=== PATIENT | female | born 1990 | race African-American/Black ===

== ENCOUNTER 2017-07-22 15:12 | Emergency (ER) | payer MEDICAID, OTHER ==
[~2017-07-22] VITALS: Ht 160 cm; Wt 58.0 kg
[~2017-07-22 15:12] MED LIST: NO MEDS; PREN1TAB19; [UNRECOGNIZED DRUG - REMARK]
[2017-07-22] MEDS ORDERED: NALOXONE HCL 1 MG/ML 2ML VIAL ONE (15:21)
[2017-07-22] MEDS ORDERED: NALOXONE HCL 1 MG/ML 2ML VIAL IV ONE (16:00)
[2017-07-22 16:18] LABS: BASOPHILS % 0.5 % (0.0-2.0); EOSINOPHILS % 0.9 % (0.0-5.0); HEMATOCRIT. 35.5 % (36.0-48.0); LYMPHOCYTES % 27.8 % (20.0-50.0); MEAN CORPUSCULAR HEMOGLOBIN 32.7 pg (28.0-32.0); MEAN CORPUSCULAR VOLUME 97.2 fL (81.0-99.0); MEAN PLATELET VOLUME 7.4 fl (7.4-10.4); MONOCYTES % 10.1 % (2.0-8.0); NEUTROPHILS % 60.7 % (40.0-76.0); PLATELET 245 x1000/uL (130-400); RED BLOOD CELL COUNT 3.65 mill/uL (4.2-5.4); RED CELL DISTRIBUTION WIDTH 12.8 % (11.6-14.6)
[2017-07-22 16:27] LABS: HCG SCREEN NEGATIVE
[2017-07-22 16:32] LABS: AMMONIA 40 uMol/L (<32); CARBON DIOXIDE 24 mEq/L (21-32); CHLORIDE 111 mEq/L (98-107)
[2017-07-22 16:47] LABS: ETHANOL BLOOD 338 mg/dL
[2017-07-22 17:05] LABS: CLARITY URINE CLEAR (CLEAR); COLOR URINE YELLOW (YELLOW); KETONES URINE NEGATIVE (NEGATIVE); LEUKOCYTE ESTERASE URINE NEGATIVE (NEGATIVE); NITRITE URINE NEGATIVE (NEGATIVE); OCCULT BLOOD URINE NEGATIVE (NEGATIVE); PROTEIN URINE 1+ (NEGATIVE); SPECIFIC GRAVITY URINE 1.015 (1.005-1.030); UROBILINOGEN URINE 0.2 E.U./dL (0.2-1.0)
[2017-07-22 17:14] LABS: *AMPHETAMINES SCREEN URINE NEGATIVE (NEGATIVE); *BARBITURATES SCREEN URINE NEGATIVE (NEGATIVE); *BENZODIAZEPINES SCREEN URINE NEGATIVE (NEGATIVE); *COCAINE SCREEN URINE NEGATIVE (NEGATIVE); METHADONE URINE SCREEN NEGATIVE (NEGATIVE); OPIATES URINE SCREEN NEGATIVE (NEGATIVE); PHENCYCLIDINE URINE SCREEN NEGATIVE (NEGATIVE)
[2017-07-22 17:16] LABS: CANNABINOID URINE SCREEN PRESUMTIVE POSITIVE (NEGATIVE)
[2017-07-22] MEDS ORDERED: SODIUM CHLORIDE 0.9% 1,000 ML IV ONE (22:00)
[2017-07-23 01:33] VITALS: BP 115/56
== END 2017-07-23 05:04 | disposition home or self-care (01) ==
LOC: ER 15:31
DX: F10.129 Alcohol abuse with intoxication, unspecified (principal); G31.2 Degeneration of nervous system due to alcohol; F12.10 Cannabis abuse, uncomplicated; R41.82 Altered mental status, unspecified; F32.9 Major depressive disorder, single episode, unspecified; R41.0 Disorientation, unspecified; D64.9 Anemia, unspecified
CPT/HCPCS: 36415; 70450; 71045; 80053; 80305; 80307; 80329; 81001; 82140; 84443; 84703; 85025; 93005; 96361; 96374; 99285; G0482; J2310; J7030

== ENCOUNTER 2017-12-14 18:25 | Emergency (ER) | payer SELFPAY ==
[~2017-12-14] VITALS: Ht 172.7 cm; Wt 65.0 kg
[2017-12-14 20:25] LABS: BASOPHILS % 0.8 % (0.0-2.0); EOSINOPHILS % 0.4 % (0.0-5.0); HEMATOCRIT. 36.2 % (36.0-48.0); HEMOGLOBIN. 12.1 g/dL (12.0-16.0); LYMPHOCYTES % 34.1 % (20.0-50.0); MEAN CORPUSCULAR VOLUME 98.2 fL (81.0-99.0); MEAN PLATELET VOLUME 7.3 fl (7.4-10.4); MONOCYTES % 9.5 % (2.0-8.0); NEUTROPHILS % 55.2 % (40.0-76.0); PLATELET 191 x1000/uL (130-400); RED BLOOD CELL COUNT 3.68 mill/uL (4.2-5.4); RED CELL DISTRIBUTION WIDTH 13.2 % (11.6-14.6)
[2017-12-14 20:27] LABS: CHLORIDE 110 mEq/L (98-107)
[2017-12-14 20:37] LABS: HCG SCREEN NEGATIVE
[2017-12-14 20:41] LABS: ETHANOL BLOOD 511 mg/dL
[2017-12-14 23:00] VITALS: BP 110/59
== END 2017-12-14 23:24 | disposition home or self-care (01) ==
LOC: ER 22:56
DX: M79.673 Pain in unspecified foot (principal); F10.129 Alcohol abuse with intoxication, unspecified; Y90.8 Blood alcohol level of 240 mg/100 ml or more
CPT/HCPCS: 36415; 73630; 80053; 84703; 85025; 99285; G0482

== ENCOUNTER 2018-03-03 11:39 | Emergency (ER) | payer MEDICAID, OTHER ==
[~2018-03-03] VITALS: Ht 162.6 cm; Wt 54.6 kg
[2018-03-03 12:29] VITALS: BP 159/100
[2018-03-03 15:38] LABS: CLARITY URINE CLEAR (CLEAR); COLOR URINE YELLOW (YELLOW); KETONES URINE TRACE (NEGATIVE); LEUKOCYTE ESTERASE URINE NEGATIVE (NEGATIVE); NITRITE URINE NEGATIVE (NEGATIVE); OCCULT BLOOD URINE NEGATIVE (NEGATIVE); PH URINE 6.5 (4.5-8.0); PROTEIN URINE 2+ (NEGATIVE); SPECIFIC GRAVITY URINE 1.009 (1.005-1.030); UROBILINOGEN URINE 0.2 E.U./dL (0.2-1.0)
== END 2018-03-03 16:20 | disposition home or self-care (01) ==
LOC: ER 12:45
DX: M54.40 Lumbago with sciatica, unspecified side (principal); R20.2 Paresthesia of skin; F19.20 Other psychoactive substance dependence, uncomplicated; F17.200 Nicotine dependence, unspecified, uncomplicated; D64.9 Anemia, unspecified; I10 Essential (primary) hypertension
CPT/HCPCS: 72100; 81003; 81025; 99285

== ENCOUNTER 2018-03-06 18:55 | Emergency (ER) | payer OTHER ==
[~2018-03-06] VITALS: Ht 162.6 cm; Wt 55.0 kg
[2018-03-07 00:45] VITALS: BP 120/73
== END 2018-03-07 00:55 | disposition home or self-care (01) ==
LOC: ER 19:47
DX: F41.9 Anxiety disorder, unspecified (principal); I10 Essential (primary) hypertension; D64.9 Anemia, unspecified
CPT/HCPCS: 99283

== ENCOUNTER 2018-04-14 03:16 | Emergency (ER) | payer OTHER ==
[~2018-04-14] VITALS: Ht 157.5 cm; Wt 59.0 kg
[2018-04-14] MEDS ORDERED: TETRACAINE 0.5% OPHTH DROPS 4ML RIGHTEYE ONE (04:15)
[2018-04-14 06:30] VITALS: BP 129/78
== END 2018-04-14 06:46 | disposition home or self-care (01) ==
LOC: ER 03:16
DX: S05.01XA Injury of conjunctiva and corneal abrasion without foreign body, right eye, initial encounter (principal); E78.00 Pure hypercholesterolemia, unspecified; F17.200 Nicotine dependence, unspecified, uncomplicated; W50.1XXA Accidental kick by another person, initial encounter; Y93.89 Activity, other specified; Y92.89 Other specified places as the place of occurrence of the external cause; Y99.8 Other external cause status
CPT/HCPCS: 99283

== ENCOUNTER 2018-04-15 14:37 | Emergency (ER) | payer OTHER ==
[~2018-04-15] VITALS: Ht 162.6 cm; Wt 56.0 kg
[2018-04-15 14:40] VITALS: BP 104/69
== END 2018-04-15 15:40 | disposition left against medical advice (07) ==
LOC: ER 14:37
DX: Z53.21 Procedure and treatment not carried out due to patient leaving prior to being seen by health care provider (principal)

== ENCOUNTER 2019-01-12 12:36 | Emergency (ER) | payer OTHER ==
[~2019-01-12] VITALS: Ht 157.5 cm; Wt 54.0 kg
[2019-01-12 13:03] VITALS: BP 137/80
== END 2019-01-12 13:50 | disposition left against medical advice (07) ==
LOC: ER 12:36
DX: K08.89 Other specified disorders of teeth and supporting structures (principal); R22.9 Localized swelling, mass and lump, unspecified; Z53.21 Procedure and treatment not carried out due to patient leaving prior to being seen by health care provider

== ENCOUNTER 2020-05-17 06:58 | Emergency (ER) | payer OTHER ==
[~2020-05-17] VITALS: Ht 157.5 cm; Wt 63.0 kg
[2020-05-17] MEDS ORDERED: ACETAMINOPHEN WITH CODEINE 300/30MG TABLET PO STA (07:42)
[2020-05-17 08:30] LABS: BASOPHILS % 0.5 % (0.0-2.0); HEMATOCRIT. 34.1 % (36.0-48.0); HEMOGLOBIN. 11.5 g/dL (12.0-16.0); LYMPHOCYTES % 17.8 % (20.0-50.0); MEAN CORPUSCULAR HEMOGLOBIN 36.1 pg (28.0-32.0); MEAN CORPUSCULAR VOLUME 107.5 fL (81.0-99.0); MEAN PLATELET VOLUME 8.4 fl (7.4-10.4); MONOCYTES % 9.8 % (2.0-8.0); NEUTROPHILS % 70.9 % (40.0-76.0); PLATELET 225 x1000/uL (130-400); RED BLOOD CELL COUNT 3.18 mill/uL (4.2-5.4)
[2020-05-17 08:32] LABS: CHLORIDE 107 mEq/L (98-107)
[2020-05-17 08:39] LABS: CLARITY URINE CLOUDY (CLEAR); COLOR URINE YELLOW (YELLOW); KETONES URINE NEGATIVE (NEGATIVE); LEUKOCYTE ESTERASE URINE 2+ (NEGATIVE); NITRITE URINE NEGATIVE (NEGATIVE); OCCULT BLOOD URINE NEGATIVE (NEGATIVE); PH URINE 6.5 (4.5-8.0); PROTEIN URINE TRACE (NEGATIVE); SPECIFIC GRAVITY URINE 1.015 (1.005-1.030)
[2020-05-17 08:50] LABS: HCG SCREEN NEGATIVE
[2020-05-17 09:57] VITALS: BP 139/76
== END 2020-05-17 09:58 | disposition home or self-care (01) ==
LOC: ER 06:58
DX: N30.00 Acute cystitis without hematuria (principal); R10.9 Unspecified abdominal pain; F17.200 Nicotine dependence, unspecified, uncomplicated; E78.00 Pure hypercholesterolemia, unspecified; R16.0 Hepatomegaly, not elsewhere classified
CPT/HCPCS: 36415; 74018; 80053; 81003; 84703; 85025; 93005; 99285

== ENCOUNTER 2020-05-17 18:11 | Emergency (ER) | payer OTHER ==
[~2020-05-17] VITALS: Ht 157.5 cm; Wt 64.0 kg
[2020-05-17 19:45] VITALS: BP 134/87
== END 2020-05-17 20:01 | disposition home or self-care (01) ==
LOC: ER 18:11
DX: R10.9 Unspecified abdominal pain (principal); K76.0 Fatty (change of) liver, not elsewhere classified; N39.0 Urinary tract infection, site not specified; Z98.890 Other specified postprocedural states
CPT/HCPCS: 74176; 81025; 99284

== ENCOUNTER 2020-10-18 08:04 | Emergency (ER) | payer OTHER ==
[~2020-10-18] VITALS: Ht 157.5 cm; Wt 64.0 kg
[2020-10-18] MEDS ORDERED: FAMOTIDINE 20MG/2ML VIAL IV STA (08:48)
[2020-10-18] MEDS ORDERED: KETOROLAC 30MG/ML VIAL IV STA (08:48)
[2020-10-18] MEDS ORDERED: SODIUM CHLORIDE 0.9% 1,000 ML IV ONE (09:00)
[2020-10-18 09:09] LABS: CLARITY URINE CLEAR (CLEAR); COLOR URINE YELLOW (YELLOW); KETONES URINE TRACE (NEGATIVE); LEUKOCYTE ESTERASE URINE NEGATIVE (NEGATIVE); NITRITE URINE NEGATIVE (NEGATIVE); OCCULT BLOOD URINE NEGATIVE (NEGATIVE); PH URINE 5.5 (4.5-8.0); PROTEIN URINE NEGATIVE (NEGATIVE); SPECIFIC GRAVITY URINE 1.021 (1.005-1.030); UROBILINOGEN URINE 0.2 E.U./dL (0.2-1.0)
[2020-10-18 09:12] LABS: CHLORIDE 110 mEq/L (98-107)
[2020-10-18 09:20] LABS: BASOPHILS % 0.4 % (0.0-2.0); EOSINOPHILS % 1.7 % (0.0-5.0); HEMATOCRIT. 32.5 % (36.0-48.0); HEMOGLOBIN. 10.9 g/dL (12.0-16.0); LYMPHOCYTES % 22.4 % (20.0-50.0); MEAN CORPUSCULAR HEMOGLOBIN 34.8 pg (28.0-32.0); MEAN CORPUSCULAR VOLUME 103.3 fL (81.0-99.0); MEAN PLATELET VOLUME 7.4 fl (7.4-10.4); MONOCYTES % 11.4 % (2.0-8.0); NEUTROPHILS % 64.1 % (40.0-76.0); PLATELET 221 x1000/uL (130-400); RED BLOOD CELL COUNT 3.14 mill/uL (4.2-5.4); RED CELL DISTRIBUTION WIDTH 12.5 % (11.6-14.6)
[2020-10-18] MEDS ORDERED: ACETAMINOPHEN 325MG TABLET PO STA (10:45)
[2020-10-18] MEDS ORDERED: CEFTRIAXONE SODIUM 500 MG/VIAL IV ONE (10:45)
[2020-10-18] MEDS ORDERED: AZITHROMYCIN 500 MG TABLET PO ONE (10:45)
[2020-10-18] MEDS ORDERED: NAPR-681 PO (11:32)
[2020-10-18 11:45] VITALS: BP 126/78
[2020-10-21 04:09] LABS: NEISSERIA GONORRHOEAE NAA Negative (Negative)
== END 2020-10-18 11:48 | disposition home or self-care (01) ==
LOC: ER 08:36
DX: N72 Inflammatory disease of cervix uteri (principal); R10.30 Lower abdominal pain, unspecified; Z98.890 Other specified postprocedural states
CPT/HCPCS: 36415; 80053; 81003; 81025; 83690; 85025; 87210; 87491; 87591; 96361; 96374; 96375; 99284; J0696; J1885; J3490; J7030

== ENCOUNTER 2021-07-21 19:25 | Emergency (ER) | payer OTHER ==
[~2021-07-21] VITALS: Ht 157.5 cm; Wt 56.0 kg
[~2021-07-21 19:25] MED LIST changes: +NAPR-681 PO; -NO MEDS; -PREN1TAB19; -[UNRECOGNIZED DRUG - REMARK]
[2021-07-21] MEDS: BACITRACIN ZINC OINT UDPKT TOP ONE (22:28)
[2021-07-21] MEDS: LIDOCAINE HCL/EPINEPHRINE 1%-EPI 1:100,000 10 ML VIAL INFIL ONE (22:28)
[2021-07-21] MEDS: TETANUS, DIPHTHERIA, PERTUSSIS VAC/PF 0.5ML (>10YR OLD) IM ONE (22:28)
[2021-07-21] MEDS: LIDOCAINE HCL/EPINEPHRINE 1%-EPI 1:100,000 20 ML VIAL INFIL ONE (22:30)
[2021-07-21 23:06] VITALS: BP 135/67
== END 2021-07-21 23:11 | disposition home or self-care (01) ==
LOC: ER 19:25
DX: S01.111A Laceration without foreign body of right eyelid and periocular area, initial encounter (principal); I49.9 Cardiac arrhythmia, unspecified; Y04.0XXA Assault by unarmed brawl or fight, initial encounter; Y93.89 Activity, other specified; Y92.89 Other specified places as the place of occurrence of the external cause; Y99.8 Other external cause status
CPT/HCPCS: 12013; 90471; 90715; 93005; 99283; J3490

== ENCOUNTER 2021-08-01 00:51 | Emergency (ER) | payer OTHER ==
[~2021-08-01] VITALS: Ht 162.6 cm; Wt 68.0 kg
[2021-08-01] MEDS ORDERED: SODIUM CHLORIDE 0.9% 1,000 ML IV ONE (01:15)
[2021-08-01 03:44] LABS: BASOPHILS % 0.4 % (0.0-2.0); EOSINOPHILS % 0.7 % (0.0-5.0); LYMPHOCYTES % 40.5 % (20.0-50.0); MEAN CORPUSCULAR HEMOGLOBIN 34.7 pg (28.0-32.0); MEAN CORPUSCULAR VOLUME 100.9 fL (81.0-99.0); MEAN PLATELET VOLUME 7.2 fl (7.4-10.4); MONOCYTES % 5.9 % (2.0-8.0); NEUTROPHILS % 52.5 % (40.0-76.0); PLATELET 250 x1000/uL (130-400); RED BLOOD CELL COUNT 3.17 mill/uL (4.2-5.4); RED CELL DISTRIBUTION WIDTH 14.1 % (11.6-14.6)
[2021-08-01 03:48] LABS: HCG SCREEN NEGATIVE
[2021-08-01 04:15] LABS: CHLORIDE 113 mEq/L (98-107)
[2021-08-01 04:56] LABS: ETHANOL BLOOD 306 mg/dL
[2021-08-01 06:43] VITALS: BP 111/64
== END 2021-08-01 06:52 | disposition home or self-care (01) ==
LOC: ER 01:09
DX: F10.129 Alcohol abuse with intoxication, unspecified (principal); Y90.8 Blood alcohol level of 240 mg/100 ml or more; D64.9 Anemia, unspecified
CPT/HCPCS: 36415; 70450; 70480; 80053; 80320; 84703; 85025; 96360; 96361; 99284; J7030; G0480

== ENCOUNTER 2021-08-08 06:56 | Emergency (ER) | payer OTHER ==
[~2021-08-08] VITALS: Ht 157.5 cm; Wt 54.4 kg
[2021-08-08] MEDS ORDERED: IBUPROFEN 600MG TABLET PO ONE (08:00)
[2021-08-08] MEDS ORDERED: TETANUS, DIPHTHERIA, PERTUSSIS VAC/PF 0.5ML (>10YR OLD) IM ONE (08:00)
[2021-08-08] MEDS ORDERED: LIDOCAINE HCL/EPINEPHRINE 1%-EPI 1:100,000 20 ML VIAL INFIL ONE (08:00)
[2021-08-08] MEDS ORDERED: LIDOCAINE HCL/EPINEPHRINE 1%-EPI 1:100,000 10 ML VIAL INFIL SCH (08:30)
[2021-08-08 08:33] VITALS: BP 115/85
[2021-08-08] MEDS ORDERED: IBUP-2029 MT (10:45)
[2021-08-08] MEDS ORDERED: CEPH500C2 MT (10:45)
== END 2021-08-08 11:14 | disposition home or self-care (01) ==
LOC: ER 06:56
DX: S01.511A Laceration without foreign body of lip, initial encounter (principal); D64.9 Anemia, unspecified; Y04.0XXA Assault by unarmed brawl or fight, initial encounter; Y93.89 Activity, other specified; Y92.9 Unspecified place or not applicable; Z98.890 Other specified postprocedural states
CPT/HCPCS: 12011; 81025; 90715; 99282; J3490

== ENCOUNTER 2021-08-17 11:48 | Emergency (ER) | payer OTHER ==
[~2021-08-17] VITALS: Ht 157.5 cm; Wt 57.0 kg
[~2021-08-17 11:48] MED LIST changes: +CEPH500C2 MT; +IBUP-2029 MT
[2021-08-17 11:54] VITALS: BP 120/79
== END 2021-08-17 15:22 | disposition left against medical advice (07) ==
LOC: ER 11:48
DX: Z48.02 Encounter for removal of sutures (principal)
CPT/HCPCS: 99281

== ENCOUNTER 2021-11-28 13:15 | Emergency (ER) | payer OTHER ==
[~2021-11-28] VITALS: Ht 160 cm; Wt 59.0 kg
[2021-11-28] MEDS ORDERED: IBUPROFEN 600MG TABLET PO STA (14:00)
[2021-11-28 14:30] VITALS: BP 140/97
[2021-11-28 14:33] LABS: BASOPHILS % 0.5 % (0.0-2.0); EOSINOPHILS % 0.4 % (0.0-5.0); HEMATOCRIT. 37.3 % (36.0-48.0); HEMOGLOBIN. 12.6 g/dL (12.0-16.0); LYMPHOCYTES % 22.1 % (20.0-50.0); MEAN CORPUSCULAR HEMOGLOBIN 35.1 pg (28.0-32.0); MEAN CORPUSCULAR VOLUME 103.9 fL (81.0-99.0); MEAN PLATELET VOLUME 7.7 fl (7.4-10.4); MONOCYTES % 5.9 % (2.0-8.0); NEUTROPHILS % 71.1 % (40.0-76.0); PLATELET 127 x1000/uL (130-400); RED BLOOD CELL COUNT 3.59 mill/uL (4.2-5.4); RED CELL DISTRIBUTION WIDTH 13.8 % (11.6-14.6)
[2021-11-28 14:37] LABS: CLARITY URINE CLEAR (CLEAR); COLOR URINE YELLOW (YELLOW); KETONES URINE NEGATIVE (NEGATIVE); LEUKOCYTE ESTERASE URINE TRACE (NEGATIVE); NITRITE URINE NEGATIVE (NEGATIVE); OCCULT BLOOD URINE NEGATIVE (NEGATIVE); PH URINE 6.5 (4.5-8.0); PROTEIN URINE NEGATIVE (NEGATIVE); SPECIFIC GRAVITY URINE 1.003 (1.005-1.030); UROBILINOGEN URINE 0.2 E.U./dL (0.2-1.0)
[2021-11-28 14:45] LABS: CHLORIDE 107 mEq/L (98-107)
[2021-11-28 14:51] LABS: HCG SCREEN NEGATIVE
[2021-11-28] MEDS ORDERED: MAGNESIUM/ALUMINUM HYDROXIDE/SIMETHICONE 30ML UDC PO STA (14:53)
[2021-11-28] MEDS ORDERED: VISCOUS LIDOCAINE 2% 15 ML UDC PO STA (14:53)
[2021-11-28] MEDS ORDERED: IBUP-2028 MT (15:19)
[2021-11-28] MEDS ORDERED: FAMO40TA70 MT (15:19)
[2021-11-28] MEDS ORDERED: MAG-55 MT (15:19)
== END 2021-11-28 15:36 | disposition home or self-care (01) ==
LOC: ER 13:15
DX: K85.90 Acute pancreatitis without necrosis or infection, unspecified (principal); G62.9 Polyneuropathy, unspecified; K70.10 Alcoholic hepatitis without ascites; F10.10 Alcohol abuse, uncomplicated; Y90.9 Presence of alcohol in blood, level not specified; D64.9 Anemia, unspecified; Z98.890 Other specified postprocedural states
CPT/HCPCS: 36415; 80053; 81003; 84703; 85025; 99284

== ENCOUNTER 2021-11-29 15:17 | Emergency (ER) | payer OTHER ==
[~2021-11-29] VITALS: Ht 160 cm; Wt 67.0 kg
[~2021-11-29 15:17] MED LIST changes: +FAMO40TA70 MT; +IBUP-2028 MT; +MAG-55 MT
[2021-11-29 15:31] VITALS: BP 106/80
== END 2021-11-29 19:20 | disposition left against medical advice (07) ==
LOC: ER 15:17
DX: G93.40 Encephalopathy, unspecified (principal); F10.229 Alcohol dependence with intoxication, unspecified; Y90.0 Blood alcohol level of less than 20 mg/100 ml; D64.9 Anemia, unspecified; Z79.899 Other long term (current) drug therapy
CPT/HCPCS: 82962; 99283

== ENCOUNTER 2021-12-19 19:48 | Emergency (ER) | payer OTHER ==
[~2021-12-19] VITALS: Ht 162.6 cm; Wt 69.0 kg
[2021-12-19] MEDS ORDERED: SODIUM CHLORIDE 0.9% 1,000 ML IV ONE (21:00)
[2021-12-19 21:18] LABS: BASOPHILS % 2.5 % (0.0-2.0); EOSINOPHILS % 1.6 % (0.0-5.0); HEMATOCRIT. 26.7 % (36.0-48.0); LYMPHOCYTES % 45.6 % (20.0-50.0); MEAN CORPUSCULAR HEMOGLOBIN 35.7 pg (28.0-32.0); MEAN CORPUSCULAR VOLUME 106.4 fL (81.0-99.0); MONOCYTES % 13.1 % (2.0-8.0); NEUTROPHILS % 37.2 % (40.0-76.0); PLATELET 475 x1000/uL (130-400); RED BLOOD CELL COUNT 2.51 mill/uL (4.2-5.4)
[2021-12-19 21:26] LABS: CHLORIDE 114 mEq/L (98-107)
[2021-12-19 21:35] LABS: PARTIAL THROMBOPLASTIN TIME 26.2 sec (23.4-31.0); PROTHROMBIN TIME 10.9 sec (9.6-11.0)
[2021-12-19 21:42] LABS: ETHANOL BLOOD 357 mg/dL
[2021-12-19 21:52] LABS: HCG SCREEN NEGATIVE
[2021-12-20] MEDS ORDERED: IBUP-2029 MT (03:37)
[2021-12-20 03:43] VITALS: BP 122/80
[2021-12-20] MEDS ORDERED: IBUPROFEN 600MG TABLET PO ONE (03:45)
== END 2021-12-20 04:30 | disposition home or self-care (01) ==
LOC: ER 19:48
DX: R41.82 Altered mental status, unspecified (principal); M79.604 Pain in right leg; M79.605 Pain in left leg; F10.129 Alcohol abuse with intoxication, unspecified; Y90.8 Blood alcohol level of 240 mg/100 ml or more; Z79.899 Other long term (current) drug therapy
CPT/HCPCS: 36415; 70450; 71045; 73590; 73610; 73630; 80053; 80320; 82962; 83880; 84703; 85025; 85610; 85730; 93005; 93970; 96360; 99285; J7030; G0480

== ENCOUNTER 2022-02-06 22:50 | Emergency (ER) | payer OTHER ==
[~2022-02-06] VITALS: Ht 157.5 cm; Wt 55.0 kg
[2022-02-06] MEDS ORDERED: IBUPROFEN 600MG TABLET PO STA (23:26)
[2022-02-06] MEDS ORDERED: BACITRACIN ZINC OINT UDPKT TOP ONE (23:30)
[2022-02-06] MEDS ORDERED: TETANUS, DIPHTHERIA, PERTUSSIS VAC/PF 0.5ML (>10YR OLD) IM ONE (23:30)
[2022-02-07 03:00] VITALS: BP 115/73
[2022-02-07] MEDS: BACITRACIN ZINC OINT UDPKT TOP NR ×3 (04:45→05:58)
[2022-02-07] MEDS: IBUPROFEN 600MG TABLET PO NR ×2 (04:45→05:42)
[2022-02-07] MEDS ORDERED: TETANUS, DIPHTHERIA, PERTUSSIS VAC/PF 0.5ML (>10YR OLD) IM ONE (04:45)
[2022-02-07] MEDS ORDERED: IBUP-2029 MT (05:56)
== END 2022-02-07 06:42 | disposition home or self-care (01) ==
LOC: ER 22:50
DX: S60.511A Abrasion of right hand, initial encounter (principal); F10.129 Alcohol abuse with intoxication, unspecified; Y90.8 Blood alcohol level of 240 mg/100 ml or more; Y08.89XA Assault by other specified means, initial encounter; Y93.89 Activity, other specified; Y92.89 Other specified places as the place of occurrence of the external cause; Y99.8 Other external cause status; Z79.899 Other long term (current) drug therapy
CPT/HCPCS: 36415; 70486; 71045; 72170; 73130; 73562; 80320; 81025; 90715; 99285; G0480